=== PATIENT | male | born 1975 | race Two or more races ===

== ENCOUNTER 2017-01-09 15:59 | Emergency (ER) | payer OTHER ==
[~2017-01-09] VITALS: Ht 188 cm; Wt 103.9 kg
[2017-01-09 16:02] VITALS: BP 151/76
[2017-01-09] MEDS ORDERED: ALBUTEROL/IPRATROPIUM 2.5MG/0.5MG, 3 ML NPPB ONE (16:30)
[2017-01-09] MEDS ORDERED: ALBUTEROL/IPRATROPIUM 2.5MG/0.5MG, 3 ML ONE (16:33)
== END 2017-01-09 17:10 | disposition home or self-care (01) ==
LOC: ED 17:00
DX: J45.21 Mild intermittent asthma with (acute) exacerbation (principal); M79.7 Fibromyalgia; Z88.8 Allergy status to other drugs, medicaments and biological substances
CPT/HCPCS: 71020; 93005; 94640; 99284; J7512; J7620